=== PATIENT | female | born 1945 | race Caucasian/White ===

== ENCOUNTER 2016-12-08 18:52 | Emergency (ER) | payer MEDICARE ==
--- NOTE | 2016-12-08 19:02 | EDM.PDOC ---
ED HISTORY OF PRESENT ILLNESS - General Chief Complaint: Chest Pain Stated Complaint: NAUSEA/CHEST PAIN Time Seen by Provider: 12/08/16 19:02 - History of Present Illness INITIAL COMMENTS - FREE TEXT/NARRATIVE: 71-year-old female presents emergency room with chest pain. This chest pain started shortly after 1 PM mount standard time. Patient was at the dentist office and thought perhaps a smell in the office was aggravating her airways she went into a coughing fit and developed substernal left-sided chest pain. This pain was associated with some nausea and radiates into both arms. This pain got worse through the afternoon. Patient has no history of coronary artery disease he does have anxiety is brought chest pain in the past. Her anxiety has not brought on symptoms this severe. The patient is an ex- smoker she quit several years ago. Patient has a significant past medical history of a tubal ligation and breast cancer her last surgery was breast cancer surgery approximately 7 years ago. Patient is not having any problems with bleeding no black or tarry stools she has not vomited blood or coughed up any blood. Her graft at present the patient has chest pain at least an 8/10 associated with some nausea the pain is radiating into both shoulders left more so than right. - Related Data Allergies/ADRs: Allergies Allergy/AdvReac Type Severity Reaction Status Date / Time docetaxel Allergy Cannot Verified 01/30/16 14:44 Remember erythromycin base Allergy Cannot Verified 01/30/16 14:44 Remember sulfacetamide Allergy Cannot Verified 01/30/16 14:44 Remember Home Meds: Home Meds Aspirin [Halfprin] 81 mg PO DAILY 11/26/14 [History] Cholecalciferol (Vitamin D3) [Vitamin D] 4,000 units PO DAILY 11/26/14 [History] Denosumab [Prolia] 60 mg SQ Q180D 11/26/14 [History] Diltiazem HCl [Diltiazem 24Hr ER] 120 mg PO DAILY 11/26/14 [History] Gemfibrozil 600 mg PO DAILY 11/26/14 [History] Multivitamin [Daily Multiple Vitamin] 1 tab PO DAILY 11/26/14 [History] Ca Carbonate/Vitamin D3/Vit K [Calcium + D Soft Chewable Tab] 2 tab PO BID 06/30 [History] Past Medical History Other Cardiovascular History: on cardizem for rapid heartrate Other Musculoskeletal History: osteoporosis - Past Surgical History Other Musculoskeletal Surgeries/Procedures:: bunionectomy Social & Family History - Tobacco Use Smoking Status *Q: Former Smoker Years of Tobacco use: 35 Used Tobacco, but Quit: Yes Month Tobacco Last Used: 9 - Recreational Drug Use Recreational Drug Use: No ED ROS GENERAL - Review of Systems Review Of Systems: See Below Constitutional: Reports: no symptoms HEENT: Reports: No symptoms Respiratory: Reports: no symptoms. Denies: shortness of breath Cardiovascular: Reports: Chest pain, Palpitations GI/Abdominal: Reports: Nausea. Denies: Abdominal pain, Black stool, Bloody stool, Hematochezia, Melena, Vomiting : Reports: no symptoms. Denies: hematuria Skin: Reports: no symptoms Neurological: Reports: no symptoms Psychiatric: Reports: Anxiety ED EXAM, GENERAL - Physical Exam Exam: See Below Exam Limited By: No limitations General Appearance: alert, mild distress (mild distress from the pain and anxiety) Eye Exam: bilateral eye: normal inspection Ears: normal external exam, normal canal, hearing grossly normal, normal TMs Nose: normal inspection, normal mucosa, no blood Throat/Mouth: Normal inspection, Normal lips, Normal teeth, Normal gums, Normal oropharynx, Normal voice, No airway compromise Head: atraumatic, normocephalic Neck: normal inspection, supple, non-tender, full range of motion. No: lymphadenopathy (L), lymphadenopathy (R) Respiratory/Chest: no respiratory distress, lungs clear, normal breath sounds Cardiovascular: regular rate, rhythm, no edema, no murmur GI/Abdominal: normal bowel sounds, soft, non tender, no organomegaly, no distention, no abnormal bruit, no mass Back Exam: normal inspection. No: CVA tenderness (L), CVA tenderness (R) EKG INTERPRETATION EKG Date: 12/08/16 Rhythm: NSR [place]: normal P-wave: present ST-T: other (nondiagnostic elevation anteriorly nondiagnostic depression inferiorly and laterally) QT: normal FL/PQ Interval: normal Comparison: NA - no prior EKG EKG Interpretation Comments: abnormal EKG suggestive of acute ischemia nondiagnostic for stemi Course - Vital Signs Last Recorded V/S: Last Vital Signs Temp 36.6 C 12/08/16 18:57 Pulse 75 12/08/16 18:57 Resp 26 H 12/08/16 18:57 BP 113/50 L 12/08/16 19:40 Pulse Ox 94 L 12/08/16 18:57 - Orders/Labs/Meds Orders: Active Orders 24 hr Category Date Time Status EKG 12 Lead [EKG Documentation Completion] [] STAT Care 12/08/16 19:19 Active EKG 12 Lead [EKG Documentation Completion] [RC] STAT Care 12/08/16 19:53 Active Chest 1V Frontal [CR] Stat Exams 12/08/16 19:15 Taken CBC W/O DIFF,HEMOGRAM [HEME] MOTH@0700 Lab 12/09/16 07:00 Ordered CBC W/O DIFF,HEMOGRAM [HEME] MOTH@0700 Lab 12/13/16 07:00 Ordered CBC W/O DIFF,HEMOGRAM [HEME] MOTH@0700 Lab 12/16/16 07:00 Ordered CBC W/O DIFF,HEMOGRAM [HEME] MOTH@0700 Lab 12/20/16 07:00 Ordered CBC W/O DIFF,HEMOGRAM [HEME] MOTH@0700 Lab 12/23/16 07:00 Ordered CBC W/O DIFF,HEMOGRAM [HEME] MOTH@0700 Lab 12/27/16 07:00 Ordered Heparin Sodium/D5W [Heparin 25,000 Units in D5W 500 ML] Med 12/08/16 20:15 Active 25,000 units in 500 ml IV TITRATE Lactated Ringers [Ringers, Lactated] 1,000 ml Med 12/08/16 19:15 Active IV ASDIRECTED Nitroglycerin/D5W [Nitroglycerin 25 MG/D5W 250 ML] Med 12/08/16 20:30 Active 25 mg in 250 ml IV TITRATE Medication Orders Lactated Ringer's (Ringers, Lactated) 1,000 mls @ 50 mls/hr IV ASDIRECTED SARAH Last Admin: 12/08/16 19:22 Dose: 50 mls/hr Heparin Sodium/Dextrose (Heparin 25,000 Units In D5w 500 Ml) 25,000 units in 500 mls @ 11.213 mls/hr IV TITRATE SARAH; 12 UNITS/KG/HR PRN Reason: Protocol Last Admin: 12/08/16 20:10 Dose: 11.213 mls/hr Nitroglycerin/Dextrose (Nitroglycerin 25 Mg/D5w 250 Ml) 25 mg in 250 mls @ 3 mls/hr IV TITRATE SARAH; 5 MCG/MIN PRN Reason: Protocol Last Titration: 12/08/16 20:34 Dose: 10 mcg/min, 6 mls/hr Admin: 12/08/16 20:24 Dose: 5 mcg/min, 3 mls/hr Labs: Laboratory Tests 12/08/16 12/08/16 12/08/16 Range/Units 19:20 19:20 19:20 WBC 13.03 H (3.98-10.04) K/mm3 RBC 4.97 (3.98-5.22) M/mm3 Hgb 15.3 (11.2-15.7) gm/L Hct 44.4 (34.1-44.9) % MCV 89.3 (79.4-94.8) fl MCH 30.8 (25.6-32.2) pg MCHC 34.5 (32.2-35.5) g/dl RDW Std Deviation 43.7 (36.4-46.3) fL Plt Count 227 (182-369) K/mm3 MPV 10.3 (9.4-12.3) fl Neutrophils % (Manual) 86 H (40-60) % Band Neutrophils % 0 (0-10) % Lymphocytes % (Manual) 11 L (20-40) % Atypical Lymphs % 0 % Monocytes % (Manual) 2 (2-10) % Eosinophils % (Manual) 0 L (0.7-5.8) % Basophils % (Manual) 1 (0.1-1.2) Platelet Estimate Adequate Plt Morphology Comment Normal RBC Morph Comment Normal PT 10.4 (8.0-13.0) SECONDS INR 0.98 APTT (22-36) SECONDS Sodium 131 L (136-145) mEq/L Potassium 4.3 (3.5-5.1) mEq/L Chloride 95 L (98-107) mEq/L Carbon Dioxide 22 (21-32) mEq/L Anion Gap 18.3 H (5-15) BUN 16 (7-18) mg/dL Creatinine 0.7 (0.55-1.02) mg/dL Est Cr Clr Drug Dosing 52.18 mL/min Estimated GFR (MDRD) > 60 (>60) mL/min BUN/Creatinine Ratio 22.9 H (14-18) Glucose 113 (83-115) mg/dL Calcium 9.4 (8.5-10.1) mg/dL Total Bilirubin 0.5 (0.2-1.0) mg/dL AST 25 (15-37) U/L ALT 19 (14-59) U/L Alkaline Phosphatase 41 L (46-116) U/L Troponin I 1.265 H* (0.00-0.056) ng/mL Total Protein 6.8 (6.4-8.2) g/dl Albumin 4.0 (3.4-5.0) g/dl Globulin 2.8 gm/dL Albumin/Globulin Ratio 1.4 (1-2) 12/08/16 Range/Units 19:20 WBC (3.98-10.04) K/mm3 RBC (3.98-5.22) M/mm3 Hgb (11.2-15.7) gm/L Hct (34.1-44.9) % MCV (79.4-94.8) fl MCH (25.6-32.2) pg MCHC (32.2-35.5) g/dl RDW Std Deviation (36.4-46.3) fL Plt Count (182-369) K/mm3 MPV (9.4-12.3) fl Neutrophils % (Manual) (40-60) % Band Neutrophils % (0-10) % Lymphocytes % (Manual) (20-40) % Atypical Lymphs % % Monocytes % (Manual) (2-10) % Eosinophils % (Manual) (0.7-5.8) % Basophils % (Manual) (0.1-1.2) Platelet Estimate Plt Morphology Comment RBC Morph Comment PT (8.0-13.0) SECONDS INR APTT 26 (22-36) SECONDS Sodium (136-145) mEq/L Potassium (3.5-5.1) mEq/L Chloride (98-107) mEq/L Carbon Dioxide (21-32) mEq/L Anion Gap (5-15) BUN (7-18) mg/dL Creatinine (0.55-1.02) mg/dL Est Cr Clr Drug Dosing mL/min Estimated GFR (MDRD) (>60) mL/min BUN/Creatinine Ratio (14-18) Glucose (83-115) mg/dL Calcium (8.5-10.1) mg/dL Total Bilirubin (0.2-1.0) mg/dL AST (15-37) U/L ALT (14-59) U/L Alkaline Phosphatase (46-116) U/L Troponin I (0.00-0.056) ng/mL Total Protein (6.4-8.2) g/dl Albumin (3.4-5.0) g/dl Globulin gm/dL Albumin/Globulin Ratio (1-2) Meds: Medications Generic Name Dose Route Start Last Admin Trade Name Frekacey PRN Reason Stop Dose Admin Lactated Ringer's 1,000 mls @ 50 mls/hr 12/08/16 19:15 12/08/16 19:22 Ringers, Lactated IV 50 mls/hr ASDIRECTED SARAH Administration Heparin Sodium/Dextrose 25,000 units in 500 mls @ 11.213 mls/hr 12/08/16 20: 15 12/08/16 20:10 Heparin 25,000 Units In D5w 500 Ml IV 11.213 mls/hr TITRATE SARAH Administration Protocol 12 UNITS/KG/HR Nitroglycerin/Dextrose 25 mg in 250 mls @ 3 mls/hr 12/08/16 20:30 12/08/16 20 :44 Nitroglycerin 25 Mg/D5w 250 Ml IV 15 mcg/min TITRATE SARAH 9 mls/hr Protocol Titration 5 MCG/MIN Discontinued Medications Generic Name Dose Route Start Last Admin Trade Name Maurice PRN Reason Stop Dose Admin Aspirin 324 mg 12/08/16 19:12 12/08/16 19:21 Aspirin PO 12/08/16 19:13 324 mg ONETIME ONE Administration Heparin Sodium (Porcine) Confirm 12/08/16 19:54 12/08/16 20:13 Heparin Sodium Administered 12/08/16 19:55 Not Given Dose 5,000 units .ROUTE .STK-MED ONE Heparin Sodium (Porcine) 2,800 units 12/08/16 20:07 12/08/16 20:25 Heparin Sodium IVPUSH 12/08/16 20:08 Not Given .BOLUS ONE Heparin Sodium (Porcine) 2,800 units 12/08/16 20:12 12/08/16 20:25 Heparin Sodium IVPUSH 12/08/16 20:13 Not Given .BOLUS ONE Heparin Sodium (Porcine) 2,800 units 12/08/16 20:14 12/08/16 20:05 Heparin Sodium IVPUSH 12/08/16 20:15 2,800 units ONETIME ONE Administration Heparin Sodium/Dextrose Confirm 12/08/16 19:54 12/08/16 20:15 Heparin 25,000 Units In D5w 500 Ml Administered 12/08/16 19:55 Not Given Dose 25,000 units in 500 mls @ as directed .ROUTE .STK-MED ONE Nitroglycerin/Dextrose Confirm 12/08/16 20:19 12/08/16 20:25 Nitroglycerin 25 Mg/D5w 250 Ml Administered 12/08/16 20:20 Not Given Dose 25 mg in 250 mls @ as directed .ROUTE .STK-MED ONE Morphine Sulfate 2 mg 12/08/16 19:31 12/08/16 19:34 Morphine IVPUSH 12/08/16 19:32 2 mg ONETIME ONE Administration Morphine Sulfate Confirm 12/08/16 19:34 12/08/16 19:36 Morphine Administered 12/08/16 19:35 Not Given Dose 2 mg .ROUTE .STK-MED ONE Morphine Sulfate 2 mg 12/08/16 19:52 12/08/16 19:56 Morphine IVPUSH 12/08/16 19:53 2 mg STAT STA Administration Nitroglycerin 0.4 mg 12/08/16 19:13 12/08/16 19:40 Nitrostat SL 12/08/16 19:24 0.4 mg Q5M PRN Administration Chest Pain Ondansetron HCl 4 mg 12/08/16 19:12 12/08/16 19:22 Zofran IVPUSH 12/08/16 19:13 4 mg ONETIME ONE Administration - Re-Assessments/Exams Free Text/Narrative Re-Assessment/Exam: 12/08/16 20:59 patient was admitted to ER EKG was nondiagnostic for STEMI however suspicious for developing acute process with ST elevation nondiagnostic anteriorly lateral and inferior ST depression. Patient was started on aspirin and nitroglycerin with minimal improvement had better improvement with morphine this also helps with her anxiety. Getting ready to start the patient on heparin and her troponin came back elevated 1.26. Patient started on a nitro drip she is doing much better from a pain standpoint she is not pain free at this time but much better pain 2-3 and we are still working with this. She is on a heparin drip after receiving a bolus. We attempted to fly the patient to [place] however because of weather conditions helicopter cannot fly. We then elected for ground transportation Departure - Departure Time of Disposition: 20:43 Disposition: DC/Tfer to Acute Hospital 02 Reason for Transfer *Q: Other Condition: fair, undetermined Clinical Impression: Non-STEMI (non-ST elevated myocardial infarction) Referrals: Donna,ZENAIDA Matos [Primary Care Provider] - Forms: ED Department Discharge - My Orders Last 24 Hours: My Active Orders 12/08/16 19:15 Chest 1V Frontal [CR] Stat Lactated Ringers [Ringers, Lactated] 1,000 ml IV ASDIRECTED 12/08/16 19:19 EKG 12 Lead [EKG Documentation Completion] [RC] STAT 12/08/16 19:53 EKG 12 Lead [EKG Documentation Completion] [RC] STAT 12/08/16 20:15 Heparin Sodium/D5W [Heparin 25,000 Units in D5W 500 ML] 25,000 units in 500 ml IV TITRATE 12/08/16 20:30 Nitroglycerin/D5W [Nitroglycerin 25 MG/D5W 250 ML] 25 mg in 250 ml IV TITRATE 12/09/16 07:00 CBC W/O DIFF,HEMOGRAM [HEME] MOTH@0700 12/13/16 07:00 CBC W/O DIFF,HEMOGRAM [HEME] MOTH@0700 12/16/16 07:00 CBC W/O DIFF,HEMOGRAM [HEME] MOTH@0700 12/20/16 07:00 CBC W/O DIFF,HEMOGRAM [HEME] MOTH@0700 12/23/16 07:00 CBC W/O DIFF,HEMOGRAM [HEME] MOTH@0700 12/27/16 07:00 CBC W/O DIFF,HEMOGRAM [HEME] MOTH@0700 - Assessment/Plan Last 24 Hours: My Active Orders 12/08/16 19:15 Chest 1V Frontal [CR] Stat Lactated Ringers [Ringers, Lactated] 1,000 ml IV ASDIRECTED 12/08/16 19:19 EKG 12 Lead [EKG Documentation Completion] [RC] STAT 12/08/16 19:53 EKG 12 Lead [EKG Documentation Completion] [RC] STAT 12/08/16 20:15 Heparin Sodium/D5W [Heparin 25,000 Units in D5W 500 ML] 25,000 units in 500 ml IV TITRATE 12/08/16 20:30 Nitroglycerin/D5W [Nitroglycerin 25 MG/D5W 250 ML] 25 mg in 250 ml IV TITRATE 12/09/16 07:00 CBC W/O DIFF,HEMOGRAM [HEME] MOTH@69912/13/16 07:00 CBC W/O DIFF,HEMOGRAM [HEME] MOTH@69912/16/16 07:00 CBC W/O DIFF,HEMOGRAM [HEME] MOTH@69912/20/16 07:00 CBC W/O DIFF,HEMOGRAM [HEME] MOTH@00 12/23/16 07:00 CBC W/O DIFF,HEMOGRAM [HEME] MOTH@69912/27/16 07:00 CBC W/O DIFF,HEMOGRAM [HEME] MOTH@07
[2016-12-08] MEDS ORDERED: Ondansetron 4 MG/2 ML SDV IVPUSH ONE ×2 (19:12→21:02)
[2016-12-08] MEDS ORDERED: Aspirin 81 MG Tab.Chew PO ONE (19:12)
[2016-12-08] MEDS ORDERED: Lactated Ringers 1,000 ML IV SCH (19:15)
[2016-12-08] MEDS: Nitroglycerin 0.4 MG Tab.SL SL PRN ×3 (19:21→19:40)
[2016-12-08] MEDS ORDERED: Morphine 2 MG/ML Syringe IVPUSH ONE (19:31)
[2016-12-08] MEDS ORDERED: Morphine 2 MG/ML Syringe ONE (19:34)
[2016-12-08 19:40] VITALS: BP 113/50
[2016-12-08] MEDS ORDERED: Morphine 2 MG/ML Syringe IVPUSH STA (19:52)
[2016-12-08] MEDS ORDERED: Heparin Sodium 5,000 Units/ML Vial ONE (19:54)
[2016-12-08] MEDS ORDERED: Heparin Sodium/D5W 25,000 UNITS/500 ML BAG ONE (19:54)
[2016-12-08] MEDS ORDERED: Heparin Sodium 10,000 Units/1 ML MDV IVPUSH ONE ×2 (20:07→20:12)
[2016-12-08] MEDS ORDERED: Heparin Sodium 5,000 Units/ML Vial IVPUSH ONE (20:14)
[2016-12-08] MEDS ORDERED: Heparin Sodium/D5W 25,000 UNITS/500 ML BAG IV SCH (20:15)
[2016-12-08] MEDS ORDERED: Nitroglycerin/D5W 25 MG/250 ML BOTTLE ONE (20:19)
[2016-12-08] MEDS ORDERED: Nitroglycerin/D5W 25 MG/250 ML BOTTLE IV SCH (20:30)
[2016-12-08] MEDS ORDERED: Ondansetron 4 MG/2 ML SDV ONE (21:00)
--- NOTE | 2016-12-10 08:46 | CR ---
Chest: Portable view of the chest was obtained. Comparison: No previous chest x-ray, previous chest CT of 10/13/11 is available. Findings: Heart size is normal. Tortuous thoracic aorta is seen. Lungs are clear. Bony structures shows minimal scoliosis within the spine. Impression: 1. Nothing acute is identified on portable chest x-ray. Diagnostic code #2
== END 2016-12-08 21:10 ==
LOC: JD.ED 18:52
DX: I21.4 Non-ST elevation (NSTEMI) myocardial infarction (principal); Z98.890 Other specified postprocedural states; Z87.891 Personal history of nicotine dependence; Z79.82 Long term (current) use of aspirin; Z79.899 Other long term (current) drug therapy; Z88.1 Allergy status to other antibiotic agents; Z88.8 Allergy status to other drugs, medicaments and biological substances
CPT/HCPCS: 36415; 71010; 80053; 84484; 85025; 85610; 85730; 93005; 96361; 96365; 96368; 96375; 96376; 99285; A9270; J1644; J2270; J2405; J7120

== ENCOUNTER 2017-01-08 20:59 | Emergency (ER) | payer MEDICARE ==
--- NOTE | 2017-01-08 21:15 | EDM.PDOC ---
ED HPI Skin/Rash - General Chief Complaint: Skin Complaint Stated Complaint: HIVES POSS MED REACTION Time Seen by Provider: 01/08/17 21:15 Source: Reports: Patient - History of Present Illness INITIAL COMMENTS - FREE TEXT/NARRATIVE: Patient here today with hives to chest, abdomen and upper legs. She had a CT early December and was started on Plavix (no stent was placed per her report). She was evaluated at [facility] and hives were thought to be from Plavix, this has been stopped by cardiology and she has appointment scheduled early next week. Continues on aspirin. She is here now as hives are quite bothersome and she has taken 50mg Benadryl x3 today. Denies respiratory symptoms or dysphonia. Treatments GIFT WRAPPER: Reports: Other (see below) Other Treatments GIFT WRAPPER: benadryl - Related Data Allergies Allergy/AdvReac Type Severity Reaction Status Date / Time docetaxel Allergy Cannot Verified 01/08/17 21:08 Remember erythromycin base Allergy Cannot Verified 01/08/17 21:08 Remember sulfacetamide Allergy Cannot Verified 01/08/17 21:08 Remember Home Meds: Ambulatory Orders Medication Instructions Recorded Confirmed Aspirin [Halfprin] 81 mg PO DAILY 11/26/14 12/22/16 Cholecalciferol (Vitamin D3) 2,000 units PO DAILY 11/26/14 12/22/16 [Vitamin D] Denosumab [Prolia] 60 mg SQ Q180D 11/26/14 12/22/16 Multivitamin [Daily Multiple 1 tab PO DAILY 11/26/14 12/22/16 Vitamin] Calcium Carbonate [Calcium] 1,000 mg PO DAILY 12/22/16 12/22/16 Clopidogrel [Plavix] 75 mg PO DAILY 12/22/16 12/22/16 Isosorbide Mononitrate [Imdur] 30 mg PO DAILY 12/22/16 12/22/16 Lisinopril 2.5 mg PO DAILY 12/22/16 12/22/16 Nitroglycerin [Nitrostat] 0.4 mg SL ASDIRECTED 12/22/16 12/22/16 Prednisone [IMW: Prednisone] 10 mg PO QAM #4 tab 01/08/17 Past Medical History Other Cardiovascular History: on cardizem for rapid heartrate Genitourinary History: Reports: Renal calculus, UTI, recurrent [employer] History: Reports: Other Musculoskeletal History: osteoporosis Oncologic (Cancer) History: Reports: Breast - Past Surgical History Other Musculoskeletal Surgeries/Procedures:: bunionectomy Social & Family History - Family History Family Medical History: Noncontributory - Tobacco Use Smoking Status *Q: Former Smoker Years of Tobacco use: 35 Used Tobacco, but Quit: Yes Month Tobacco Last Used: 9 - Caffeine Use Caffeine Use: Reports: None - Recreational Drug Use Recreational Drug Use: No ED ROS GENERAL - Review of Systems Review Of Systems: See Below Constitutional: Denies: fever, chills, weakness, fatigue HEENT: Reports: No symptoms Respiratory: Reports: No Symptoms Cardiovascular: Reports: No symptoms Skin: Reports: rash, urticaria Neurological: Reports: No Symptoms Psychiatric: Reports: No symptoms ED EXAM, SKIN/RASH Exam: See Below Exam Limited By: No limitations General Appearance: alert, WD/WN, no apparent distress Respiratory/Chest: no respiratory distress, lungs clear, normal breath sounds Cardiovascular: normal peripheral pulses, regular rate, rhythm, no murmur Neurological: alert, oriented Psychiatric: normal affect, normal mood Skin: Warm, Dry, Intact, Rash (Urticarial rash to upper chest, abdomen, back and bilateral upper thighs. ) Course - Vital Signs Last Recorded V/S: Last Vital Signs Temp 98.2 F 01/08/17 21:08 Pulse 58 L 01/08/17 21:08 Resp 16 01/08/17 21:08 BP 136/61 01/08/17 21:08 Pulse Ox 95 01/08/17 21:08 - Orders/Labs/Meds Meds: Medications Discontinued Medications Generic Name Dose Route Start Last Admin Trade Name Maurice PRN Reason Stop Dose Admin Acetaminophen 650 mg 01/08/17 22:39 01/08/17 22:44 Tylenol PO 01/08/17 22:40 650 mg NOW ONE Administration Famotidine 40 mg 01/08/17 21:43 01/08/17 21:55 Pepcid IVPUSH 01/08/17 21:44 40 mg ONETIME ONE Administration Famotidine Confirm 01/08/17 21:58 01/08/17 22:03 Pepcid Administered 01/08/17 21:59 Not Given Dose 20 mg .ROUTE .STK-MED ONE Loratadine 10 mg 01/08/17 22:41 01/08/17 22:44 Claritin PO 01/08/17 22:42 10 mg ONETIME ONE Administration Methylprednisolone Sodium Succinate 125 mg 01/08/17 21:41 01/08/17 21:55 Solu-Medrol IVPUSH 01/08/17 21:42 125 mg ONETIME ONE Administration - Re-Assessments/Exams Free Text/Narrative Re-Assessment/Exam: She denies dyspnea, lungs CTA. As rash has persisted with Benadryl will give 125mg Solumedrol and 40mg Pepcid. 01/08/17 21:59 Hives persist, will give 10mg loratadine and Tylenol 650mg for pain. 01/08/17 22:28 Hives much improved and now have minimal erythema. Will discharge home on Pepcid and loratadine and 3 days PO prednisone. She is to follow-up with cardiology as scheduled and PCP if not completely resolved by Tuesday. 01/08/17 23:18 Departure - Departure Time of Disposition: 23:19 Disposition: Home, Self-Care 01 Condition: good Clinical Impression: Hives Prescriptions: Prednisone [IMW: Prednisone] 10 mg PO QAM #4 tab Referrals: Hannah Thompson PA [Primary Care Provider] - Forms: ED Department Discharge Additional Instructions: OTC Pepcid 20mg 2x daily and loratadine 10mg daily until symptoms completely resolved. Both of these can be purchased over-the -counter. Prednisone x3 days, this will be at [facility] as they are open at noon on Tuesday. Keep appointment with cardiology, follow-up with your primary provider if rash persists.
[2017-01-08] MEDS ORDERED: methylPREDNISolone Sodium Succinate 125 MG/2 ML SDV IVPUSH ONE (21:41)
[2017-01-08] MEDS ORDERED: Famotidine 20 MG/2 ML SDV IVPUSH ONE (21:43)
[2017-01-08] MEDS ORDERED: Famotidine 20 MG/2 ML SDV ONE (21:58)
[2017-01-08] MEDS ORDERED: Acetaminophen 325 MG Tab PO ONE (22:39)
[2017-01-08] MEDS ORDERED: Loratadine 10 MG Tab PO ONE (22:41)
[2017-01-08 23:37] VITALS: BP 99/67
== END 2017-01-08 23:33 | disposition home or self-care (01) ==
LOC: JD.ED 20:59
DX: L50.9 Urticaria, unspecified (principal); Z88.2 Allergy status to sulfonamides; Z88.8 Allergy status to other drugs, medicaments and biological substances; Z79.82 Long term (current) use of aspirin; Z79.899 Other long term (current) drug therapy; Z87.891 Personal history of nicotine dependence
CPT/HCPCS: 96374; 96375; 99283; A9270; J2930; 99284